=== PATIENT | female | born 1955 | race African-American/Black ===

== ENCOUNTER 2017-01-15 18:42 | Emergency (ER) | payer MEDICAID, OTHER ==
[~2017-01-15] VITALS: Ht 160 cm; Wt 100.9 kg
[2017-01-15] MEDS ORDERED: MORPHINE SULFATE 10 MG/ML SYRINGE IVP ONE (19:45)
[2017-01-15 21:34] VITALS: BP 120/71
== END 2017-01-15 21:38 | disposition home or self-care (01) ==
LOC: EMS 18:45
DX: M54.5 Low back pain (principal); E78.00 Pure hypercholesterolemia, unspecified; I10 Essential (primary) hypertension; F17.210 Nicotine dependence, cigarettes, uncomplicated
CPT/HCPCS: 96374; 99284; J2270

== ENCOUNTER 2024-04-13 08:42 | Emergency (ER) | payer MEDICARE, OTHER ==
[~2024-04-13] VITALS: Ht 160 cm; Wt 103.0 kg
[2024-04-13 08:47] VITALS: TEMP 98.4
[2024-04-13] MEDS ORDERED: BENA-18 PO (08:48)
[2024-04-13] MEDS ORDERED: ASPI-1450 PO (08:48)
[2024-04-13] MEDS ORDERED: ATOR40TA28 PO (08:48)
[2024-04-13] MEDS ORDERED: FURO20TA5 PO (08:48)
[2024-04-13] MEDS ORDERED: HYDR25TA2 PO (08:48)
[2024-04-13] MEDS ORDERED: POTA8TAB71 PO (08:48)
[2024-04-13] MEDS: OxyCODONE HCL/ACETAMINOPHEN 5-325 MG TABLET PO ONE (09:42)
[2024-04-13] MEDS: LIDOCAINE 5% TRANSDERMAL PATCH TD ONE (09:42)
[2024-04-13] MEDS ORDERED: METH4TAB3 PO (10:21)
[2024-04-13] MEDS ORDERED: OXYC-38 PO (10:21)
[2024-04-13 10:25] VITALS: BP 139/74; PULSE 72; RESP 18; O2SAT 99
[2024-04-13] MEDS: PredniSONE 20 MG TABLET PO ONE (10:28)
== END 2024-04-13 10:43 | disposition home or self-care (01) ==
LOC: EMS 08:42
DX: M54.32 Sciatica, left side (principal); E78.00 Pure hypercholesterolemia, unspecified; I10 Essential (primary) hypertension; F17.210 Nicotine dependence, cigarettes, uncomplicated; Z90.710 Acquired absence of both cervix and uterus; Z90.89 Acquired absence of other organs; Z98.890 Other specified postprocedural states; Z98.1 Arthrodesis status
CPT/HCPCS: 99284; 99406; J7512